=== PATIENT | male | born 1960 | race African-American/Black ===

== ENCOUNTER 2017-01-03 16:07 | Inpatient (IN) | payer MEDICARE, OTHER ==
--- NOTE | ~2017-01-03 | HP ---
History And Physical [id number] [place]. [address] NAME: EDUAR BECKER : 56 STATUS : ADM IN [facility]#: [id number] AGE: 56 ADM/REG DATE : 01/03/17 MR#: [id number] REPORT SERV DATE: 01/04/17 DICTATED BY: KAYLEIGH NATION DATE: 01/03/17 REPORT STATUS : Draft TRANSCRIBED BY: MODL DATE: 01/03/17 DATE OF ADMISSION: 01/03/2017 TIME: 1540 hours. Seen in the ER room 25. HISTORY OF PRESENT ILLNESS: The patient is a 56-year-old male with known history of diabetes and vascular disease. He presents today with evidence of CVA. He was eating lunch with a friend when he suddenly became dysarthric and hold his tray. They brought him in. He was evaluated by Neurology, who clinically assessed him as having a stroke with left upper and lower extremity weakness. CT scan of the head was negative, he was given tPA. The patient has shown some improvement post tPA NIH scale scoring. He is awake and responsive at this point in time. According to his friend he was recently here for work on the vascularity of his right leg. He was seen by Dr. Yobany Chaparro at that time who did a balloon angioplasty type procedure. The patient does have gangrene toe. PAST MEDICAL HISTORY: Past medical history is significant for: 1. Mild mental retardation. 2. Diabetes type 2. 3. Carotid stenosis of right internal carotid artery. 4. Hypertension. 5. Had a previous CEA acute in late November, middle cerebral artery with dysarthria. HOME MEDICATIONS: 1. Aspirin 325 mg. 2. Lipitor 80 mg. 3. Plavix 75 mg. 4. Prinivil 20 mg. 5. Tramadol 50 mg. 6. Glucophage 1000 mg. 7. Norvasc. 8. Glipizide. 9. He also takes insulin. 10.Lisinopril. 11.Insulin detemir 30 units subcu every morning. 12.Insulin NovoLog 25 units before breakfast. PAST SURGICAL HISTORY: Significant for coronary bypass surgery. He says stents in his left leg. The patient had multiple attempts at angioplasty of the right leg. SOCIAL HISTORY: The patient has never worked. He is sent here by a friend. FAMILY HISTORY: Basically unknown. ALLERGIES: TO PENICILLIN. History And Physical [address] [place]. [address] NAME: EDUAR BECKER : 56 STATUS : ADM IN PAT#: [id number] AGE: 56 ADM/REG DATE : 01/03/17 MR#: [id number] REPORT SERV DATE: 01/04/17 DICTATED BY: KAYLEIGH NATION DATE: 01/03/17 REPORT STATUS : Draft TRANSCRIBED BY: MODNettie DATE: 01/03/17 IN NOVEMBER, THE PATIENT HAS SUBACUTE INFARCT EVOLUTION RIGHT FRONTAL REGIONS, RIGHT BASAL GANGLIA. PHYSICAL EXAMINATION: VITAL SIGNS: Blood pressure is 135/63, pulse is 92, temperature 97.4, and saturation normal. GENERAL: The patient is awake and responsive. HEENT: Head is normocephalic. Sclerae and conjunctivae are clear. NECK: Supple. I could not hear any bruits in the neck. CHEST: Clear to auscultation and percussion. Midline scar from previous bypass surgery. CARDIAC: S1, S2 are normal. No murmurs or gallops. ABDOMEN: Soft and nontender. No masses or organomegaly. EXTREMITIES: No clubbing or cyanosis. There are multiple vascular ischemic changes in lower extremities. There is gangrene of the great toe on the right foot. Pulses diminished. NEUROLOGIC: Cranial nerves 2 through 12 appear to be intact. His tongue points left. He can raise all extremities. He has good grasp on both sides, and can speak. He does know where he is. No adenopathy noted. LABORATORY DATA: H and H of 13.3 and 30.9, white count 6000, platelet count 206,000, PTT 32.6, and INR 1.4. Glucose is 67 that was treated by the ER with 1.[address] showed previous ischemic insults noted on 12/04/2016. Those have resolved. No evidence for acute ischemia on this CT, 01/03/2017. A chest x-ray shows mild cardiomegaly, otherwise clear chest x-ray. EKG, not done at this time. IMPRESSION: 1. Cerebrovascular accident, now status post tPA. 2. Diabetes mellitus. 3. Severe peripheral vascular disease with gangrene of the right toe. PLAN: Admit the patient. Continue his antihypertensive medications. Ask Vascular Surgery to see him. Ask Wound Care to see him. JAYME/KAJAL Kayleigh Nation M.D. / [id number] History And Physical [address] [address] NAME: EDUAR BECKER : 56 STATUS : ADM IN [facility]#: [id number] AGE: 56 ADM/REG DATE : 01/03/17 MR#: [id number] REPORT SERV DATE: 01/04/17 DICTATED BY: KAYLEIGH NATION DATE: 01/03/17 REPORT STATUS : Draft TRANSCRIBED BY: KAJAL DATE: 01/03/17 CC: Bennie Escamilla IV, M.D.
--- NOTE | ~2017-01-03 | CN ---
Consultation Report [facility] [address] [place]. [address] NAME: EDUAR BECKER : 56 STATUS : ADM IN PAT#: [id number] AGE: 56 ADM/REG DATE : 01/03/17 MR#: [id number] REPORT SERV DATE: 01/04/17 DICTATED BY: DATE: REPORT STATUS : Draft TRANSCRIBED BY: MODL DATE: 01/03/17 NEUROLOGY CONSULTATION DATE OF CONSULTATION: 01/03/2017 REASON FOR CONSULT: Dysarthria, left-sided weakness, and concern for acute stroke. HISTORY OF PRESENT ILLNESS: This is a 56-year-old male, presented to [facility] on 01/03/2017 secondary to acute onset of the symptom. The patient was talking to a friend, when the patient acutely at roughly 1415 hours, was noted to have dysarthria, slurred speech, as well as confusion. The patient arrived at the emergency room and was noted to have a left-sided hemiparesis. At baseline, the patient was noted to have difficulties with ischemic leg in the lower extremity with the patient has had revascularized procedure, but apparently has not had significant improvement. The patient was also noted to have wounds on the right foot, but otherwise, the patient's friend denies any fever, chills, nausea, vomiting, chest pain, or shortness of breath or any other recent illness. The patient does have recent hospitalization for peripheral vascular disease, but otherwise, no other recent illness and no other changes in medication. The patient's friend reports the patient to be compliant with medication, however, medication bottles was from several months ago, there is a question of the patient's actual compliance. The patient at baseline does not take any anticoagulation. The patient is unable to verbalize if there is any sensory changes, but was noted to have dysarthria. PAST MEDICAL HISTORY: Significant for history of mental retardation as well as a history of diabetes with peripheral vascular disease and history of previous open heart surgery. No history of pacemaker was otherwise noted. MEDICATIONS: The patient's current medications consist of Plavix as well as metformin, Levemir, NovoLog, lisinopril. ALLERGIES: WITH THE PATIENT REPORTS ALLERGY TO PENICILLIN. FAMILY HISTORY: Family history is unclear. The patient's friend thinks that the patient might have a family history of hypertension, but detailed family history is unable to be obtained. REVIEW OF SYSTEMS: Unable to be obtained secondary to the patient's current mental status. According to friend, no clear review of system was noted. PHYSICAL EXAMINATION: VITAL SIGNS: The patient was noted to have vital signs upon ER presentation consisted of T- max 97.4 and heart rate of 92, respirations of 18, blood pressure of 135/63. GENERAL: The patient is well developed, well nourished, in no acute distress. Consultation Report [address] [address] NAME: EDUAR BECKER : 56 STATUS : ADM IN [facility]#: [id number] AGE: 56 ADM/REG DATE : 01/03/17 MR#: [id number] REPORT SERV DATE: 01/04/17 DICTATED BY: DATE: REPORT STATUS : Draft TRANSCRIBED BY: KAJAL DATE: 01/03/17 CARDIOVASCULAR: Regular rate and rhythm. No carotid bruits were otherwise auscultated. PULMONARY: Clear to auscultation bilaterally. NEUROLOGICAL EXAMINATION: Generally, the patient is alert, oriented to he is in the hospital, but not to year or month. The patient is able to follow some sporadic commands at the time of evaluation. Dysarthria was noted at the time of evaluation. Cranial nerves II through XII, pupils equal, round, and reactive to light. Extraocular eye movement was noted to be intact with intact blink to threat response. Facial expression was roughly symmetric. The tongue was deviated to the left with the patient noted to have symmetric palatal movement. Appeared to have normal hearing. Reports a symmetrical sensation bilaterally. The patient was noted to have weakness in the left upper extremity. At the time of evaluation, able to resist some gravity, but drifts down. Otherwise, intact sensation in the right upper and right lower extremities. The patient, in addition, was also noted to have weakness in the left lower extremity. Reports a symmetrical sensation in bilateral upper extremities. Deep tendon reflex was trace in bilateral upper extremity, absent in bilateral patella. No clear ataxia was otherwise seen. Gait evaluation was not performed secondary to weakness. LABORATORY STUDY: Consists of white blood cell count of 6.0, hemoglobin of 13.3, hematocrit is 38.9, and platelet count of 206. At the time of evaluation, CT scan of the brain without contrast demonstrated no acute process. With the CT angiogram, no clear thrombosis was seen by neurologist. Radiology report is currently pending. IMPRESSION: 1. Dysarthria. 2. Left-sided hemiparesis. Time of onset was 1415 hours. NIH Stroke Scale was 5. The tPA was administered at 1523 hours, and concern for subcortical stroke, we will admit the patient to the ICU for further monitoring and continuing evaluation after tPA as per protocol. We will obtain MRI as well as a stroke evaluation. RECOMMENDATION: 1. We will admit to ICU as per post tPA protocol. 2. Fasting lipid panel and hemoglobin A1c. 3. MRI of the brain without contrast. 4. Echocardiogram. 5. PT/OT and Speech Therapy. 6. Aspirin and Plavix 24 hours after tPA. 7. Atorvastatin 80 mg p.o. at bedtime. [facility]/KAJAL Benito Higuera MD Consultation Report [address] [address] NAME: EDUAR BECKER : 56 STATUS : ADM IN [facility]#: [id number] AGE: 56 ADM/REG DATE : 01/03/17 MR#: [id number] REPORT SERV DATE: 01/04/17 DICTATED BY: DATE: REPORT STATUS : Draft TRANSCRIBED BY: MODL DATE: 01/03/17 / [id number] CC: Bennie Escamilla IV, M.D.
--- NOTE | ~2017-01-03 | DS ---
Discharge Summary [facility] [address] [place]. [address] NAME: EDUAR BECKER : 56 STATUS : DIS IN PAT#: [id number] AGE: 56 ADM/REG DATE : 01/03/17 MR#: [id number] REPORT SERV DATE: 01/11/17 DICTATED BY: THI GODINEZ DATE: 01/10/17 REPORT STATUS : Draft TRANSCRIBED BY: MODL DATE: 01/10/17 ADMISSION DATE: 01/03/2017 DISCHARGE DATE: 01/09/2017 CONDITION ON DISCHARGE: Stable. DISPOSITION: Discharged to home with home health nurse and home wound care for amputated right-sided big toe. DIAGNOSES ON DISCHARGE: Include: 1. Acute CVA which resulted in the right basal ganglia infarct with left hemiparesis which did not result in significant residual deficits luckily as the patient received tPA. 2. Multiple old infarcts in the past. 3. Uncontrolled diabetes mellitus. 4. Severe peripheral vascular disease. 5. Diabetic foot ulcer with gangrene of the right big toe status post amputation during this admission. 6. Hypertension, which is stable. 7. Mild mental retardation according to H and P that was noted. 8. Past medical history also includes history of carotid stenosis of the right internal carotid artery. BRIEF HOSPITAL COURSE: The patient is a 56-year-old, black male patient, who was initially admitted to the ICU after he received tPA. He came in with symptoms of left hemiparesis and dysarthria and was given tPA as his CT scan of the brain was normal. After that, he was kept in the unit for 24 to 48 hours to watch for stability and then transferred to the floor. The patient's MRI finally showed an evolving 2.2 x 1.4 cm right basal ganglia infarct that was acute. It is to be noted that the patient has had other strokes in the past too but the most recent one and the acute one during this admission was this right basal ganglia infarct. However, luckily, the patient ended up with very minimal deficits of left-sided weakness. His dysarthria has also almost completely resolved but he also has mild mental retardation and some dysarthria persists. There is no dysphagia, and there is no restriction on food other than soft mechanical diet with aspiration precautions as always in a stroke patient. Also, the patient had developed right big toe diabetic foot ulcer with gangrene, and his right big toe was unsalvageable. He hence had to undergo a right big toe amputation, and he did well after this. On the day of discharge, the site of amputation looks to be healing really well with no evidence of infection. There is very minimal bleeding at the site, slight oozing only with dressing changes. Other than that, the site looks very good. The mercado in this patient is risk factor modification, mainly control of diabetes mellitus and hypertension so after being stabilized and receiving supportive and symptomatic care and antibiotics for the right big toe gangrene and amputation, the patient is being discharged home with home health and home wound care and advised to closely follow up with his PCP Discharge Summary [address] [place]. [address] NAME: EDUAR BECKER : 56 STATUS : DIS IN PAT#: [id number] AGE: 56 ADM/REG DATE : 01/03/17 MR#: [id number] REPORT SERV DATE: 01/11/17 DICTATED BY: THI GODINEZ DATE: 01/10/17 REPORT STATUS : Draft TRANSCRIBED BY: KAJAL DATE: 01/10/17 within the next one to two weeks. The patient is being discharged home on the following medications: Levaquin 500 mg p.o. daily for the next one week, aspirin 325 mg p.o. daily, Glargine insulin or Lantus insulin 30 units subcu once daily, NovoLog FlexPen 25 units subcutaneously before breakfast and supper, Lipitor 40 mg p.o. daily, Robaxin 750 mg p.o. t.i.d., Glucophage 1000 mg p.o. b.i.d., Prinivil 20 mg once a day, Plavix 75 mg once a day, amlodipine 10 mg once a day, and tramadol 50 mg p.o. daily p.r.n. for pain. The most recent lab results I have on this patient include the following: On 01/08/2017, his CBC shows a WBC count of 6, hemoglobin 13.7, hematocrit 41.4, and platelet count of 242 all completely normal. Electrolyte profile shows completely normal electrolytes including BUN 16, creatinine 1.07 which is normal. Blood glucose levels are fairly well controlled while in the hospital only with diet control and with good amount of insulin. His hemoglobin A1c, however, came back elevated at 8.3 reflecting uncontrolled diabetes while at home. As mentioned above as his CT scan of the brain was normal upon admission, an MRI was done after he received tPA. This showed an evolving stroke as mentioned above in the right basal ganglia, again, the effects of which were probably minimized because of the tPA. Hence, the patient is being discharged home in stable condition with advice for close followup, and I have spent about 40 minutes in coordinating discharge care of this patient including face-to face encounter and summarizing this discharge. RRA/MODL Thi Godinez M.D. / [id number] CC: Bennie Myers M.D.
--- NOTE | ~2017-01-03 | OP ---
Record Of Operation [facility] [address] [place]. [address] NAME: EDUAR BECKER : 56 STATUS : ADM IN [facility]#: [id number] AGE: 56 ADM/REG DATE : 01/03/17 MR#: [id number] REPORT SERV DATE: 01/06/17 DICTATED BY: YOBANY CHAPARRO JR. DATE: 01/06/17 REPORT STATUS : Draft TRANSCRIBED BY: KAJAL DATE: 01/06/17 DATE OF PROCEDURE: 01/06/2017 PREOPERATIVE DIAGNOSES: Recent cerebrovascular accident, diabetes, right great toe ulceration and operation of right great toe disarticulation. POSTOPERATIVE DIAGNOSES: Recent cerebrovascular accident, diabetes, right great toe ulceration and operation of right great toe disarticulation. SURGEON: Yobany Chaparro M.D. HISTORY: This is a 56-year-old, white male with diabetes, admitted to the hospital on 01/03/2017 with a CVA. He has recovered well. While here, he was noted to have ulceration of his right great toe with claw-toe deformity and palpable pulses in his right foot. PROCEDURE: The patient was placed on the operating room table. He underwent a general anesthetic. Right foot was prepped and draped in a sterile manner as possible. Racquet- shaped incisions were made around the base of the right great toe. The MP joint was then incised with a 15 blade. The toe was then completely removed. The toe was injected with Marcaine. One focal bleeder was cauterized. The wound was closed with 3-0 nylon. The patient tolerated the procedure well and came back to recovery room in fair condition. There were no intraoperative complications. ESTIMATED BLOOD LOSS: Negligible. DF/KAJAL Yobany Chaparro Jr., M.D. / [id number] CC: MD Ramiro Davila M.D.
[2017-01-03 15:25] LABS: BASOPHILS 0.2 %; BASOPHILS ABSOLUTE 0.01 10/3/uL (0.0-0.16); EOSINOPHILS 2.5 %; EOSINOPHILS ABSOLUTE 0.15 10/3/uL (0.0-0.53); ER CBC TAT 0 Hrs 07 Mins; HEMATOCRIT 38.9 % (40.0-51.0); HEMOGLOBIN 13.3 g/dL (13.6-17.8); IMMATURE GRANULOCYTES 0.2 %; IMMATURE GRANULOCYTES ABSOLUTE 0.01 10/3/uL (0.0-0.11); LYMPHOCYTES 37.3 %; LYMPHOCYTES ABSOLUTE 2.25 10/3/uL (0.67-4.30); MEAN CORPUS HGB CONC 34.2 g/dL (32.0-36.0); MEAN CORPUSCULAR HEMOGLOB 28.1 pg (26.0-34.0); MEAN CORPUSCULAR VOLUME 82.2 fL (80-100); MEAN PLATELET VOLUME 9.8 fL (9.2-13.0); MONOCYTES 10.1 %; MONOCYTES ABSOLUTE 0.61 10/3/uL (0.21-1.20); NEUTROPHILS 49.7 %; RBC DISTRIBUTION WIDTH 13.6 % (12.0-16.0); RED CELL COUNT 4.73 10/6/uL (4.7-6.1)
[2017-01-03 15:27] LABS: MANUAL DIFF NO %; PLATELET COUNT 206 10/3/uL (150-400)
[2017-01-03 15:34] LABS: INTERNATIONAL NORMAL RATI 1.4 UNITS (-); PARTIAL THROMBO TIME 32.6 SEC (22.5-37.2); PROTIME (NOT ORD) 16.8 SEC (12.0-14.5)
[2017-01-03 15:49] LABS: ALKALINE PHOSPHATASE 93 U/L (45-117); CALCIUM, SERUM 8.8 MG/DL (8.5-10.4); CHLORIDE, SERUM 106 MMOL/L (96-112); CO2 (CARBON DIOXIDE) 28 MMOL/L (24-34); CREATININE 1.31 MG/DL (0.70-1.30); GFR AFRICAN AMERICAN 69 ML/MIN (>=60); GFR NON AFRICAN AMERICAN 60 ML/MIN (>=60); SGOT(AST) 12 U/L (5-40); SGPT(ALT) 21 U/L (5-65); SODIUM, SERUM 143 MMOL/L (135-148); TOTAL BILIRUBIN 0.7 MG/DL (0-1.2); TOTAL PROTEIN 7.4 G/DL (6.0-8.5); TROPONIN I <0.02 NG/ML (<0.05)
[2017-01-03 15:50] LABS: A/G RATIO 0.8 (0.7-1.9); ALBUMIN 3.3 G/DL (3.5-5.0); BUN (BLOOD UREA NITROGEN) 26 MG/DL (6-23); GLOBULIN 4.1 G/DL (2.5-4.1); GLUCOSE, SERUM 73 MG/DL (60-99)
[~2017-01-03 16:07] MED LIST: *UNABLE2; ASA5GR PO; ASAB PO; CILOXAN OPH; CLEOCIN300 MG PO; COREG6 PO; GLIPIZIDE PO; GLUCOPHAGE1000 MG PO; GLUCPH PO; LEVEMFLXPN SC; LEVEMIR SC; LIPITOR40 PO; LIPITOR80 MG PO; LOP25 PO; METHOC750B PO; NORCO PO; NORV10 PO; NORV25 PO; NORV5 PO; NOVOLOG SC; NOVOLOG SQ; NOVOPEN SC; NOVOPENMIX SC; PLAVIX PO; PREDFORTE OPH; PRIN20 PO; ULTRAM50 PO; ZESTRIL20 MG PO; ZYVOXPO PO; [UNRECOGNIZED DRUG - OTHER] OPH
[2017-01-03 20:00] LABS: BASOPHILS 0.1 %; BASOPHILS ABSOLUTE 0.01 10/3/uL (0.0-0.16); EOSINOPHILS 1.9 %; EOSINOPHILS ABSOLUTE 0.14 10/3/uL (0.0-0.53); HEMOGLOBIN 14.8 g/dL (13.6-17.8); IMMATURE GRANULOCYTES 0.3 %; IMMATURE GRANULOCYTES ABSOLUTE 0.02 10/3/uL (0.0-0.11); LYMPHOCYTES 27.7 %; MEAN CORPUS HGB CONC 34.3 g/dL (32.0-36.0); MEAN CORPUSCULAR HEMOGLOB 27.9 pg (26.0-34.0); MEAN CORPUSCULAR VOLUME 81.4 fL (80-100); MEAN PLATELET VOLUME 9.8 fL (9.2-13.0); MONOCYTES 5.5 %; NEUTROPHILS 64.5 %; NEUTROPHILS ABSOLUTE 4.66 10/3/uL (2.02-8.40); PLATELET COUNT 213 10/3/uL (150-400); RBC DISTRIBUTION WIDTH 13.5 % (12.0-16.0); RED CELL COUNT 5.31 10/6/uL (4.7-6.1); WHITE BLOOD CELLS 7.2 10/3/uL (4.5-10.5)
[2017-01-03 20:02] LABS: HEMATOCRIT 43.2 % (40.0-51.0); MANUAL DIFF NO %
[2017-01-03 20:16] LABS: CPK 98 U/L (0-200); TRIGLYCERIDE 82 MG/DL (< 150); TROPONIN I <0.02 NG/ML (<0.05)
[2017-01-03 20:17] LABS: CHOL/HDL RATIO(NOT ORDER) 3.2 (0-5); CHOLESTEROL 173 MG/DL (< 200); CK-MB 1.7 NG/ML; HDL CHOLESTEROL 54 MG/DL (> 39); LDL CHOLESTEROL 103 MG/DL (< 130); NON-HDL CHOLESTEROL 119 MG/DL (< 160)
[2017-01-04 04:06] LABS: BASOPHILS 0.3 %; BASOPHILS ABSOLUTE 0.02 10/3/uL (0.0-0.16); HEMATOCRIT 40.9 % (40.0-51.0); HEMOGLOBIN 13.8 g/dL (13.6-17.8); IMMATURE GRANULOCYTES 0.3 %; IMMATURE GRANULOCYTES ABSOLUTE 0.02 10/3/uL (0.0-0.11); LYMPHOCYTES 33.2 %; LYMPHOCYTES ABSOLUTE 2.22 10/3/uL (0.67-4.30); MEAN CORPUS HGB CONC 33.7 g/dL (32.0-36.0); MEAN CORPUSCULAR HEMOGLOB 27.6 pg (26.0-34.0); MEAN CORPUSCULAR VOLUME 81.8 fL (80-100); MEAN PLATELET VOLUME 9.9 fL (9.2-13.0); MONOCYTES 7.5 %; NEUTROPHILS 55.7 %; NEUTROPHILS ABSOLUTE 3.73 10/3/uL (2.02-8.40); PLATELET COUNT 214 10/3/uL (150-400); RBC DISTRIBUTION WIDTH 13.7 % (12.0-16.0); WHITE BLOOD CELLS 6.7 10/3/uL (4.5-10.5)
[2017-01-04 04:08] LABS: MANUAL DIFF NO %
[2017-01-04 04:34] LABS: CHLORIDE, SERUM 102 MMOL/L (96-112); CO2 (CARBON DIOXIDE) 26 MMOL/L (24-34); CREATININE 0.89 MG/DL (0.70-1.30); GFR AFRICAN AMERICAN 109 ML/MIN (>=60); GFR NON AFRICAN AMERICAN 94 ML/MIN (>=60); POTASSIUM, SERUM 3.2 MMOL/L (3.5-5.3); SODIUM, SERUM 138 MMOL/L (135-148); TROPONIN I 0.02 NG/ML (<0.05)
[2017-01-04 04:35] LABS: BUN (BLOOD UREA NITROGEN) 18 MG/DL (6-23); CK-MB 1.3 NG/ML; CPK 75 U/L (0-200); GLUCOSE, SERUM 184 MG/DL (60-99)
[2017-01-04 05:19] LABS: WBC (NOT ORDERED) (RFLEX) 0 (0-5)
[2017-01-04 06:00] LABS: ASCORBIC ACID (UR NOT ORDER) NEG (NEG); BILIRUBIN, URINE NEGATIVE (NEG); KETONE, URINE NEGATIVE (NEG); LEUKOCYTE ESTERASE(NOT OR NEG (NEG)
[2017-01-04 12:16] LABS: CPK 67 U/L (0-200); TROPONIN I <0.02 NG/ML (<0.05)
[2017-01-04 12:17] LABS: CK-MB 1.5 NG/ML
[2017-01-05 04:20] LABS: BASOPHILS 0.2 %; BASOPHILS ABSOLUTE 0.01 10/3/uL (0.0-0.16); EOSINOPHILS 3.4 %; HEMATOCRIT 43.8 % (40.0-51.0); HEMOGLOBIN 14.7 g/dL (13.6-17.8); IMMATURE GRANULOCYTES 0.2 %; IMMATURE GRANULOCYTES ABSOLUTE 0.01 10/3/uL (0.0-0.11); LYMPHOCYTES 31.9 %; LYMPHOCYTES ABSOLUTE 1.86 10/3/uL (0.67-4.30); MEAN CORPUS HGB CONC 33.6 g/dL (32.0-36.0); MEAN CORPUSCULAR HEMOGLOB 28.1 pg (26.0-34.0); MEAN CORPUSCULAR VOLUME 83.7 fL (80-100); MEAN PLATELET VOLUME 9.6 fL (9.2-13.0); MONOCYTES 11.7 %; MONOCYTES ABSOLUTE 0.68 10/3/uL (0.21-1.20); NEUTROPHILS 52.6 %; NEUTROPHILS ABSOLUTE 3.07 10/3/uL (2.02-8.40); PLATELET COUNT 227 10/3/uL (150-400); RBC DISTRIBUTION WIDTH 13.6 % (12.0-16.0); RED CELL COUNT 5.23 10/6/uL (4.7-6.1); WHITE BLOOD CELLS 5.8 10/3/uL (4.5-10.5)
[2017-01-05 04:22] LABS: MANUAL DIFF NO %
[2017-01-05 04:43] LABS: BUN (BLOOD UREA NITROGEN) 18 MG/DL (6-23); CALCIUM, SERUM 9.3 MG/DL (8.5-10.4); CHLORIDE, SERUM 105 MMOL/L (96-112); CO2 (CARBON DIOXIDE) 26 MMOL/L (24-34); GFR AFRICAN AMERICAN 85 ML/MIN (>=60); GFR NON AFRICAN AMERICAN 74 ML/MIN (>=60); GLUCOSE, SERUM 117 MG/DL (60-99); PHOSPHORUS, SERUM 2.8 MG/DL (2.5-4.5); POTASSIUM, SERUM 3.8 MMOL/L (3.5-5.3); SODIUM, SERUM 139 MMOL/L (135-148)
[2017-01-06 08:56] LABS: HEMATOCRIT 43.5 % (40.0-51.0); HEMOGLOBIN 14.6 g/dL (13.6-17.8)
[2017-01-07 07:21] LABS: BASOPHILS 0.2 %; BASOPHILS ABSOLUTE 0.01 10/3/uL (0.0-0.16); EOSINOPHILS 3.1 %; HEMATOCRIT 40.8 % (40.0-51.0); HEMOGLOBIN 13.6 g/dL (13.6-17.8); IMMATURE GRANULOCYTES 0.2 %; IMMATURE GRANULOCYTES ABSOLUTE 0.01 10/3/uL (0.0-0.11); LYMPHOCYTES 27.1 %; LYMPHOCYTES ABSOLUTE 1.72 10/3/uL (0.67-4.30); MEAN CORPUS HGB CONC 33.3 g/dL (32.0-36.0); MEAN CORPUSCULAR HEMOGLOB 27.5 pg (26.0-34.0); MEAN CORPUSCULAR VOLUME 82.4 fL (80-100); MEAN PLATELET VOLUME 9.7 fL (9.2-13.0); MONOCYTES 9.4 %; NEUTROPHILS ABSOLUTE 3.81 10/3/uL (2.02-8.40); PLATELET COUNT 229 10/3/uL (150-400); RBC DISTRIBUTION WIDTH 13.8 % (12.0-16.0); RED CELL COUNT 4.95 10/6/uL (4.7-6.1); WHITE BLOOD CELLS 6.4 10/3/uL (4.5-10.5)
[2017-01-07 07:28] LABS: MANUAL DIFF NO %
[2017-01-07 08:05] LABS: A/G RATIO 0.8 (0.7-1.9); ALBUMIN 3.2 G/DL (3.5-5.0); ALKALINE PHOSPHATASE 81 U/L (45-117); BUN (BLOOD UREA NITROGEN) 17 MG/DL (6-23); CALCIUM, SERUM 8.8 MG/DL (8.5-10.4); CHLORIDE, SERUM 105 MMOL/L (96-112); CO2 (CARBON DIOXIDE) 27 MMOL/L (24-34); CREATININE 0.98 MG/DL (0.70-1.30); GFR AFRICAN AMERICAN 98 ML/MIN (>=60); GFR NON AFRICAN AMERICAN 85 ML/MIN (>=60); GLOBULIN 3.9 G/DL (2.5-4.1); GLUCOSE, SERUM 103 MG/DL (60-99); PHOSPHORUS, SERUM 3.3 MG/DL (2.5-4.5); POTASSIUM, SERUM 4.3 MMOL/L (3.5-5.3); SGOT(AST) 12 U/L (5-40); SGPT(ALT) 19 U/L (5-65); SODIUM, SERUM 139 MMOL/L (135-148); TOTAL BILIRUBIN 0.9 MG/DL (0-1.2); TOTAL PROTEIN 7.1 G/DL (6.0-8.5)
[2017-01-08 06:15] LABS: BASOPHILS 0.3 %; BASOPHILS ABSOLUTE 0.02 10/3/uL (0.0-0.16); EOSINOPHILS 3.4 %; HEMATOCRIT 41.4 % (40.0-51.0); HEMOGLOBIN 13.7 g/dL (13.6-17.8); IMMATURE GRANULOCYTES 0.2 %; IMMATURE GRANULOCYTES ABSOLUTE 0.01 10/3/uL (0.0-0.11); LYMPHOCYTES 36.6 %; LYMPHOCYTES ABSOLUTE 2.18 10/3/uL (0.67-4.30); MEAN CORPUS HGB CONC 33.1 g/dL (32.0-36.0); MEAN CORPUSCULAR HEMOGLOB 27.6 pg (26.0-34.0); MEAN CORPUSCULAR VOLUME 83.5 fL (80-100); MEAN PLATELET VOLUME 9.6 fL (9.2-13.0); MONOCYTES 10.9 %; MONOCYTES ABSOLUTE 0.65 10/3/uL (0.21-1.20); NEUTROPHILS 48.6 %; NEUTROPHILS ABSOLUTE 2.89 10/3/uL (2.02-8.40); PLATELET COUNT 242 10/3/uL (150-400); RBC DISTRIBUTION WIDTH 13.6 % (12.0-16.0); RED CELL COUNT 4.96 10/6/uL (4.7-6.1)
[2017-01-08 06:16] LABS: MANUAL DIFF NO %
[2017-01-08 06:19] LABS: BUN (BLOOD UREA NITROGEN) 16 MG/DL (6-23); CALCIUM, SERUM 8.9 MG/DL (8.5-10.4); CHLORIDE, SERUM 101 MMOL/L (96-112); CO2 (CARBON DIOXIDE) 29 MMOL/L (24-34); CREATININE 1.07 MG/DL (0.70-1.30); GFR AFRICAN AMERICAN 88 ML/MIN (>=60); GFR NON AFRICAN AMERICAN 76 ML/MIN (>=60); GLUCOSE, SERUM 123 MG/DL (60-99); POTASSIUM, SERUM 4.2 MMOL/L (3.5-5.3); SODIUM, SERUM 137 MMOL/L (135-148)
[2017-01-09] MEDS ORDERED: LEVEMIR SC (11:23)
[2017-01-09] MEDS ORDERED: ASA5GR PO (11:23)
[2017-01-09] MEDS ORDERED: LEVAQUIN5T PO (11:25)
[2017-01-14 14:03] LABS: CREATININE 1.3 MG/DL (0.70-1.30)
[2017-06-24] MEDS ORDERED: PLAVIX PO (15:35)
[2017-06-24] MEDS ORDERED: PRIN20 PO (15:36)
[2017-06-24] MEDS ORDERED: NEUR300 PO (15:36)
[2017-06-24] MEDS ORDERED: GLUCOPHAGE1000 MG PO (15:36)
[2017-06-24] MEDS ORDERED: LEVEMIR SC (15:36)
[2017-06-24] MEDS ORDERED: LOP50 PO (15:37)
[2017-06-30] MEDS ORDERED: DSS PO (14:23)
[2017-06-30] MEDS ORDERED: NORV10 PO (14:23)
[2017-06-30] MEDS ORDERED: ASAB PO (14:23)
== END 2017-01-09 19:22 | disposition home health service (06) | DRG 41 ==
LOC: ER 16:07 → CCU 17:45 → 1SO 01-05 17:30
PROVIDERS: Hospitalist; Internal Medicine Critical Care Medicine; Psychiatry & Neurology Neurology; Surgery
PROC: 0Y6P0Z0 Detachment at Right 1st Toe, Complete, Open Approach (ICD-10-PCS; principal; 2017-01-06 12:45)
DX: I63.9 Cerebral infarction, unspecified (principal); G81.94 Hemiplegia, unspecified affecting left nondominant side; E11.52 Type 2 diabetes mellitus with diabetic peripheral angiopathy with gangrene; E11.621 Type 2 diabetes mellitus with foot ulcer; I25.10 Atherosclerotic heart disease of native coronary artery without angina pectoris; E11.649 Type 2 diabetes mellitus with hypoglycemia without coma; R47.1 Dysarthria and anarthria; R29.705 NIHSS score 5; L97.519 Non-pressure chronic ulcer of other part of right foot with unspecified severity; I10 Essential (primary) hypertension; F70 Mild intellectual disabilities; I65.21 Occlusion and stenosis of right carotid artery; Z95.1 Presence of aortocoronary bypass graft; Z79.4 Long term (current) use of insulin; Z79.84 Long term (current) use of oral hypoglycemic drugs; Z79.82 Long term (current) use of aspirin; Z79.02 Long term (current) use of antithrombotics/antiplatelets; Z86.73 Personal history of transient ischemic attack (TIA), and cerebral infarction without residual deficits; Z88.0 Allergy status to penicillin
CPT/HCPCS: 36415; 70450; 70496; 70498; 70551; 71010; 80048; 80053; 80061; 81001; 82550; 82553; 82962; 83036; 83735; 84100; 84484; 85014; 85018; 85025; 85610; 85730; 86850; 86900; 86901; 87641; 88305; 88311; 92523-GN; 92610-GN; 93005; 93308; 93880; 96374; 97162-GP; 97165-GO; 99285; A9270-GY; G8978-CK-GP; G8979-CK-GP; G8980-CK-GP; G8987-CJ-GO; G8988-CJ-GO; G8989-CJ-GO; G8996-CJ-GN; G8997-CJ-GN; G8998-CJ-GN; G9162-CJ-GN; G9163-CJ-GN; G9164-CJ-GN; J0690; J2250; J2405; J2997; P9045; Q9967

== ENCOUNTER 2017-03-10 18:19 | Observation (INO) | payer MEDICARE, OTHER ==
--- NOTE | ~2017-03-10 | CN ---
Consultation Report [facility] [address] [place]. [address] NAME: EDUAR BECKER : 56 STATUS : ADM IN [facility]#: [id number] AGE: 56 ADM/REG DATE : 03/11/17 MR#: [id number] REPORT SERV DATE: 03/11/17 DICTATED BY: FLORENCIA SYED DATE: 03/11/17 REPORT STATUS : Draft TRANSCRIBED BY: MODL DATE: 03/11/17 INFECTIOUS DISEASE CONSULTATION DATE OF CONSULTATION: 03/11/2017 REASON FOR CONSULTATION: Nail injury to left foot. HISTORY OF PRESENT ILLNESS: This is a 56-year-old man with past medical history notable for diabetes, hypertension, and coronary artery disease along with peripheral arterial disease. On 03/09/2017, he stepped on a small nail that was in some wood while he was wearing a tennis shoes. He felt the injury right after it happened and washed the foot, but developed progressive pain, swelling, and some redness and presented to the emergency department at [facility] on the evening of 03/10/2017. He was found to have a normal white blood cell count and no fever, but had some erythema and tenderness in the area of the injury. An x-ray was done and it was negative. He was started on vancomycin. He does feel better today. The patient has neuropathy in his feet, but he was able to feel this injury occur. PAST MEDICAL HISTORY: In addition to the above is notable for stroke with mild left hemiparesis. He has also had bypass surgery. He had a nail injury to his right heel in 2016 with an abscess that grew MRSA. ALLERGIES: PENICILLIN CAUSES SWELLING. OUTPATIENT MEDICATIONS: Include Norvasc, aspirin, Lipitor, Plavix, insulin, Prinivil, and metformin. SOCIAL HISTORY: Nonsmoker and nondrinker. FAMILY HISTORY: Unknown. REVIEW OF SYSTEMS: Otherwise, negative. PHYSICAL EXAMINATION: VITAL SIGNS: This an 82 kg man. He is afebrile. Blood pressure 167/77, pulse 90, and respiratory rate 14. GENERAL: He is in no acute distress. HEAD AND NECK: Shows clear oral cavity. LUNGS: Clear to auscultation anteriorly. CARDIAC: Regular rate and rhythm without murmur, gallop, or rub. ABDOMEN: Soft and nontender. Decreased bowel sounds. EXTREMITIES: The plantar aspect of the left foot shows the wound where the nail penetrated the left lateral foot near the distal fourth and fifth metatarsal area. There is minimal surrounding induration and tenderness to palpation. No real erythema now and no drainage. Consultation Report [address] [place]. [address] NAME: EDUAR BECKER : 56 STATUS : ADM IN [facility]#: [id number] AGE: 56 ADM/REG DATE : 03/11/17 MR#: [id number] REPORT SERV DATE: 03/11/17 DICTATED BY: FLORENCIA SYED DATE: 03/11/17 REPORT STATUS : Draft TRANSCRIBED BY: KAJAL DATE: 03/11/17 LABORATORY STUDIES: White blood cell count today 6.3, hemoglobin 15.0, and platelets 196. Procalcitonin less than 0.05. Creatinine 1.18. Liver function tests normal. Sedimentation rate of 12. Blood cultures negative to date. IMPRESSION: Penetrating nail injury to the left foot through a tissue in a diabetic. PLAN: 1. We will add Levaquin to vancomycin to cover gram negatives including Pseudomonas that could have been part of the bacterial abel in the tissue that could have been introduced into the foot with the injury. 2. We will reassess tomorrow, but anticipate discharge soon on oral antibiotics. KATLIN/KAJAL Florencia Syed M.D. / [id number] CC: Bennie Pabon M.D.
--- NOTE | ~2017-03-10 | DS ---
Discharge Summary [facility] [address] [place]. [address] NAME: EDUAR BECKER : 56 STATUS : ADM Jacoby PAT#: [id number] AGE: 56 ADM/REG DATE : 03/11/17 MR#: [id number] REPORT SERV DATE: 03/14/17 DICTATED BY: SRIDHAR MATUTE DATE: 03/14/17 REPORT STATUS : Draft TRANSCRIBED BY: MODL DATE: 03/14/17 ADMISSION DATE: 03/11/2017 DISCHARGE DATE: ADDENDUM: This is an addendum to previous discharge summary on both 03/12/2017 and 03/13/2017. The patient was to be discharged on 03/13/2017 after his stress test. Unfortunately, the patient underwent nuclear medicine stress test with inducible ischemia. He was seen by Dr. Ambrocio, Cardiology. The patient was asymptomatic, had no further VT, and had no chest pain. It was decided that he would proceed with outpatient evaluation as directed by Dr. Ambrocio, and the patient was in agreement to this. I also discussed this with the patient's guardian, who assists him. Only other issues during his hospital stay was hypertension. He was asymptomatic without chest pain, headache or shortness of breath, but his Lopressor was increased to 50 b.i.d. from 25, and he was placed on a nitroglycerin patch with good improvement in his pressure. At discharge, he has an appointment on 03/19/[address] Ambrocio. Medication changes will be Norvasc discontinued. Lopressor will increase from 25 to 50 and nitroglycerin patch will be added. He had otherwise finish out his antibiotics and his other medications as per his previous discharge summary. TLF/KAJAL Sridhar Matute M.D. / [id number] CC: Bennie Pabon M.D.
--- NOTE | ~2017-03-10 | DS ---
Discharge Summary [id number] [facility] . [address] NAME: EDUAR BECKER : 56 STATUS : ADM Jacoby PAT#: [id number] AGE: 56 ADM/REG DATE : 03/11/17 MR#: [id number] REPORT SERV DATE: 03/13/17 DICTATED BY: SRIDHAR MATUTE DATE: 03/13/17 REPORT STATUS : Draft TRANSCRIBED BY: MODL DATE: 03/13/17 ADMISSION DATE: 03/11/2017 DISCHARGE DATE: ADDENDUM: The patient was to be discharged home; however, he had an asymptomatic 7-beat run of VT. His previous cardiac history and followup was unknown. Troponin and electrolytes were checked and negative. It was elected to proceed with a nuclear medicine stress test given the patient's previous history of CAD. Pending a negative stress test, he will be discharged later today with recommended followup with his credit assistant, Dr. Ambrocio. New prescriptions will be metoprolol 25 b.i.d., prescription written with one refill, and Cipro 500 b.i.d. x7 days, Bactrim DS b.i.d. x7 days. He will otherwise, with the exception of discontinuing his Norvasc, continue his other home medications as dictated in previous note. EDIN/KAJAL Sridhar Matute M.D. / [id number] CC: Bennie Pabon M.D.
--- NOTE | ~2017-03-10 | DS ---
Discharge Summary [facility] [address] [facility] [place]. [address] NAME: EDUAR BECKER : 56 STATUS : ADM IN [facility]#: [id number] AGE: 56 ADM/REG DATE : 03/11/17 MR#: [id number] REPORT SERV DATE: 03/12/17 DICTATED BY: SRIDHAR MATUTE DATE: 03/12/17 REPORT STATUS : Draft TRANSCRIBED BY: MODL DATE: 03/12/17 ADMISSION DATE: 03/11/2017 DISCHARGE DATE: 03/12/2017 FINAL HOSPITAL DIAGNOSES: 1. Cellulitis, status post nail puncture. 2. Diabetes. 3. Hypertension. 4. Prior cerebrovascular accident. 5. Coronary artery disease. CONSULTATIONS: Infectious Disease. PROCEDURES: X-ray imaging of the foot done on 03/10 showing no obvious radiographic abnormality. No foreign body. No soft tissue gas. CURRENT PHYSICAL FINDINGS AND HPI: Please see dictated H and P by Dr. Szymanski. In brief, the patient is a 56-year-old male with above medical history with complaint of nail puncture to his left lower extremity prior to admission. Hospital course vital signs, presenting temp was 97.9. The patient had no significant fever during his hospital stay. Heart rate was 70s to 80s. Blood pressures were markedly elevated when he initially presented with 224/108. Subsequently, his blood pressures decreased to the 150s to 160s/70s. LABORATORY DATA: Procalcitonin was less than 0.05. BMP was unremarkable. Blood sugars were well controlled. TSH was 2.870. BNP was 47.1, lactate was 1.0. Presenting white count was 6.3, H and H was 15 and 44.4, platelets of 196. Blood cultures are negative to date. HOSPITAL COURSE: The patient was admitted. Infectious Disease was consulted. Routine labs were ordered as noted above. He was started on sliding scale insulin. He was started on vancomycin, and a tetanus booster was requested and ordered, was given on 03/11. The patient was seen by Infectious Disease and Levaquin p.o. was added to his antibiotics. His foot seemed to be improving. He was re-evaluated on the second hospital day. There was minimal swelling to the dorsum of his foot. The puncture wound looked dry, well closed without drainage. Pending ID recommendations, he will be discharged later today. DISPOSITION: Discharge home. ANTIBIOTICS: Per Infectious Disease. MEDICATIONS: Norvasc 10 one per day, aspirin 325, Lipitor 40, Plavix 75, Levemir 30, Prinivil 20, Glucophage 1000 b.i.d. He will be advised to follow up with his PCP p.rnay. No changes were made on his antihypertensives although his numbers were borderline at best. This can be followed outpatient. Discharge Summary [address] [address] NAME: EDUAR BECKER : 56 STATUS : ADM IN [facility]#: [id number] AGE: 56 ADM/REG DATE : 03/11/17 MR#: [id number] REPORT SERV DATE: 03/12/17 DICTATED BY: SRIDHAR MATUTE DATE: 03/12/17 REPORT STATUS : Draft TRANSCRIBED BY: KAJAL DATE: 03/12/17 NOEMYF/KAJAL Sridhar Matute M.D. / [id number] CC: Bennie Pabon M.D.
--- NOTE | ~2017-03-10 | HP ---
History And Physical [address] [place]. [address] NAME: EDUAR BECKER : 56 STATUS : ADM IN [facility]#: [id number] AGE: 56 ADM/REG DATE : 03/11/17 MR#: [id number] REPORT SERV DATE: 03/11/17 DICTATED BY: SAGE HORNE DATE: 03/11/17 REPORT STATUS : Draft TRANSCRIBED BY: MODL DATE: 03/11/17 DATE OF ADMISSION: 03/11/2017 CHIEF COMPLAINT: A 56-year-old male, presenting with a nail puncture and cellulitis of his left foot. HISTORY OF PRESENT ILLNESS: The patient's history was obtained through careful interview with the patient, coupled with review of [facility] medical records. This afternoon, the patient was walking on a job site and had a nail puncture into his foot, going deep into his foot. He developed significant pain, redness, swelling, but no purulent drainage. He describes no fevers or chills. No shortness of breath. He claims diabetes is under good control. He describes left foot pain, aching quality, around the area of his injury, 3/10 in severity. REVIEW OF SYSTEMS: Otherwise, a 14-point review of systems was obtained was negative. PAST MEDICAL HISTORY: 1. Diabetes hemoglobin A1c of 8.3 in December 2016. 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 3. Stroke with left hemiparesis, mild. 4. CABG. 5. Hypertension. 6. Peripheral arterial disease with carotid stenosis and balloon angioplasty of lower extremity arterial blockage, seen by Dr. Chaparro. 7. MRSA. PAST SURGICAL HISTORY: 1. CABG about 10 years ago. 2. Left foot toe amputation. ALLERGIES: TO PENICILLIN. SOCIAL HISTORY: No tobacco abuse. No alcohol abuse. Spent part of his developing years at [employer]. He lives with a friend. He does construction. He has no children. FAMILY HISTORY: Unknown. He does have brothers and sisters, who live in the area, but he believes they are all healthy without major medical problems. CURRENT MEDICATIONS: Include Norvasc 10 mg p.o. daily, aspirin 325 mg p.o. daily, Lipitor 40 mg p.o. daily, Plavix 75 mg p.o. daily, Levemir 30 units subcutaneous daily, lisinopril 20 History And Physical [address] [place]. [address] NAME: EDUAR BECKER : 56 STATUS : ADM IN [facility]#: [id number] AGE: 56 ADM/REG DATE : 03/11/17 MR#: [id number] REPORT SERV DATE: 03/11/17 DICTATED BY: SAGE HORNE DATE: 03/11/17 REPORT STATUS : Draft TRANSCRIBED BY: MODL DATE: 03/11/17 mg p.o. daily, and metformin 1000 mg p.o. b.i.d. PHYSICAL EXAMINATION: VITAL SIGNS: Temperature 97.7, pulse 101, blood pressure 224/98, respiratory rate 16, and O2 saturation 99% on room air. GENERAL: A pleasant and cooperative male. He describes mild distress from his left foot pain. HEENT: Pupils are equal, round, and reactive to light. No conjunctival pallor. No scleral icterus. Nares are patent. Oropharynx is clear of obstruction. Moist mucous membranes. NECK: Trachea midline. No thyromegaly. LYMPH: No cervical lymphadenopathy. No supraclavicular lymphadenopathy. No inguinal lymphadenopathy. RESPIRATORY: Clear to auscultation at bases. No wheezes, rales, or rhonchi. Normal respiratory effort. CARDIOVASCULAR: Tachycardic. Regular rhythm. No murmurs, rubs, or gallops. No current extremity edema is appreciated. ABDOMEN: Soft, nontender, and nondistended. Normal bowel sounds auscultated throughout. No hepatosplenomegaly. DERMATOLOGICAL: The patient's left foot around the obvious puncture site shows erythema, heat, swelling, and tenderness. No purulent drainage. Otherwise, warm and dry extremities. No pallor. No cyanosis. PSYCHIATRIC: Normal affect. Good mood. Alert and oriented x3. LABORATORY DATA: White blood cell count 5.9, hemoglobin 15, hematocrit 45, and platelets 199. Sodium 142, potassium 4.0, chloride 106, bicarb 32, BUN 26, creatinine 1.1, and glucose 165. INR 1.4 and lactic acid 0.9. ASSESSMENT AND PLAN: 1. Nail puncture cellulitis of the left foot with history of severe diabetic foot infections and methicillin-resistant Staphylococcus aureus in the past. We will start treatment with IV vancomycin. Obtain Infectious Disease consult for antibiotic guidance. We will give a tetanus booster. 2. Diabetes. Hemoglobin A1c of 8.[address] on sliding scale insulin. 3. Organic brain syndrome. 4. Peripheral arterial disease. 5. Coronary artery disease, status post coronary artery bypass graft. KPL/KAJAL Sage Horne M.D. / [id number] CC: History And Physical [address] [address] NAME: EDUAR BECKER : 56 STATUS : ADM IN [facility]#: [id number] AGE: 56 ADM/REG DATE : 03/11/17 MR#: [id number] REPORT SERV DATE: 03/11/17 DICTATED BY: SAGE HORNE DATE: 03/11/17 REPORT STATUS : Draft TRANSCRIBED BY: KAJAL DATE: 03/11/17 Bennie Kauffman M.D. Daniel Fisher Jr., M.D.
[~2017-03-10 18:19] MED LIST changes: +LEVAQUIN5T PO
[2017-03-11 00:10] LABS: BASOPHILS 0.2 %; BASOPHILS ABSOLUTE 0.01 10/3/uL (0.0-0.16); EOSINOPHILS 2.4 %; EOSINOPHILS ABSOLUTE 0.14 10/3/uL (0.0-0.53); ER CBC TAT 0 Hrs 05 Mins; HEMOGLOBIN 15.6 g/dL (13.6-17.8); IMMATURE GRANULOCYTES 0.3 %; IMMATURE GRANULOCYTES ABSOLUTE 0.02 10/3/uL (0.0-0.11); LYMPHOCYTES 31.5 %; LYMPHOCYTES ABSOLUTE 1.87 10/3/uL (0.67-4.30); MEAN CORPUS HGB CONC 34.1 g/dL (32.0-36.0); MEAN CORPUSCULAR HEMOGLOB 28.4 pg (26.0-34.0); MEAN CORPUSCULAR VOLUME 83.2 fL (80-100); MONOCYTES 7.9 %; MONOCYTES ABSOLUTE 0.47 10/3/uL (0.21-1.20); NEUTROPHILS 57.7 %; NEUTROPHILS ABSOLUTE 3.42 10/3/uL (2.02-8.40); PLATELET COUNT 199 10/3/uL (150-400); RBC DISTRIBUTION WIDTH 14.5 % (12.0-16.0); RED CELL COUNT 5.49 10/6/uL (4.7-6.1); WHITE BLOOD CELLS 5.9 10/3/uL (4.5-10.5)
[2017-03-11 00:14] LABS: HEMATOCRIT 45.7 % (40.0-51.0); MANUAL DIFF NO %
[2017-03-11 00:20] LABS: INTERNATIONAL NORMAL RATI 1.4 UNITS (-); PROTIME (NOT ORD) 16.6 SEC (12.0-14.5)
[2017-03-11 00:21] LABS: PARTIAL THROMBO TIME 34.5 SEC (22.5-37.2)
[2017-03-11 00:26] LABS: CALCIUM, SERUM 9.3 MG/DL (8.5-10.4); CHLORIDE, SERUM 106 MMOL/L (96-112); CO2 (CARBON DIOXIDE) 32 MMOL/L (24-34); CREATININE 1.17 MG/DL (0.70-1.30); GFR AFRICAN AMERICAN 79 ML/MIN (>=60); GFR NON AFRICAN AMERICAN 68 ML/MIN (>=60); SODIUM, SERUM 142 MMOL/L (135-148)
[2017-03-11 00:27] LABS: BUN (BLOOD UREA NITROGEN) 26 MG/DL (6-23); GLUCOSE, SERUM 165 MG/DL (60-99)
[2017-03-11 06:41] LABS: BASOPHILS 0.3 %; BASOPHILS ABSOLUTE 0.02 10/3/uL (0.0-0.16); EOSINOPHILS 2.7 %; EOSINOPHILS ABSOLUTE 0.17 10/3/uL (0.0-0.53); HEMATOCRIT 44.4 % (40.0-51.0); IMMATURE GRANULOCYTES 0.3 %; IMMATURE GRANULOCYTES ABSOLUTE 0.02 10/3/uL (0.0-0.11); LYMPHOCYTES 32.3 %; LYMPHOCYTES ABSOLUTE 2.03 10/3/uL (0.67-4.30); MEAN CORPUS HGB CONC 33.8 g/dL (32.0-36.0); MEAN CORPUSCULAR VOLUME 82.8 fL (80-100); MEAN PLATELET VOLUME 10.1 fL (9.2-13.0); MONOCYTES ABSOLUTE 0.63 10/3/uL (0.21-1.20); NEUTROPHILS 54.4 %; NEUTROPHILS ABSOLUTE 3.42 10/3/uL (2.02-8.40); PLATELET COUNT 196 10/3/uL (150-400); RBC DISTRIBUTION WIDTH 14.9 % (12.0-16.0); RED CELL COUNT 5.36 10/6/uL (4.7-6.1); WHITE BLOOD CELLS 6.3 10/3/uL (4.5-10.5)
[2017-03-11 06:42] LABS: MANUAL DIFF NO %
[2017-03-11 06:48] LABS: PARTIAL THROMBO TIME 33.7 SEC (22.5-37.2)
[2017-03-11 06:49] LABS: INTERNATIONAL NORMAL RATI 1.3 UNITS (-); PROTIME (NOT ORD) 16.2 SEC (12.0-14.5)
[2017-03-11 07:00] LABS: A/G RATIO 0.8 (0.7-1.9); ALBUMIN 3.4 G/DL (3.5-5.0); BUN (BLOOD UREA NITROGEN) 23 MG/DL (6-23); CALCIUM, SERUM 9.1 MG/DL (8.5-10.4); CHLORIDE, SERUM 107 MMOL/L (96-112); CO2 (CARBON DIOXIDE) 31 MMOL/L (24-34); CREATININE 1.18 MG/DL (0.70-1.30); GFR AFRICAN AMERICAN 78 ML/MIN (>=60); GFR NON AFRICAN AMERICAN 68 ML/MIN (>=60); GLOBULIN 4.2 G/DL (2.5-4.1); GLUCOSE, SERUM 136 MG/DL (60-99); PHOSPHORUS, SERUM 3.1 MG/DL (2.5-4.5); POTASSIUM, SERUM 3.8 MMOL/L (3.5-5.3); SGOT(AST) 9 U/L (5-40); SGPT(ALT) 20 U/L (5-65); SODIUM, SERUM 143 MMOL/L (135-148); TOTAL BILIRUBIN 1.1 MG/DL (0-1.2); TOTAL PROTEIN 7.6 G/DL (6.0-8.5); TROPONIN I <0.02 NG/ML (<0.05)
[2017-03-11 07:01] LABS: ALKALINE PHOSPHATASE 103 U/L (45-117)
[2017-03-11 07:13] LABS: PROCALCITONIN <0.05 ng/mL (<0.5)
[2017-03-12 04:44] LABS: BUN (BLOOD UREA NITROGEN) 21 MG/DL (6-23); CALCIUM, SERUM 9.5 MG/DL (8.5-10.4); CHLORIDE, SERUM 108 MMOL/L (96-112); CREATININE 1.09 MG/DL (0.70-1.30); GFR AFRICAN AMERICAN 86 ML/MIN (>=60); GFR NON AFRICAN AMERICAN 74 ML/MIN (>=60); POTASSIUM, SERUM 4.1 MMOL/L (3.5-5.3); SODIUM, SERUM 142 MMOL/L (135-148)
[2017-03-12 04:51] LABS: CO2 (CARBON DIOXIDE) 26 MMOL/L (24-34); GLUCOSE, SERUM 96 MG/DL (60-99)
[2017-03-12 14:06] LABS: BUN (BLOOD UREA NITROGEN) 25 MG/DL (6-23); CALCIUM, SERUM 9.6 MG/DL (8.5-10.4); CHLORIDE, SERUM 105 MMOL/L (96-112); CO2 (CARBON DIOXIDE) 30 MMOL/L (24-34); CREATININE 1.17 MG/DL (0.70-1.30); GFR AFRICAN AMERICAN 79 ML/MIN (>=60); GFR NON AFRICAN AMERICAN 68 ML/MIN (>=60); GLUCOSE, SERUM 133 MG/DL (60-99); POTASSIUM, SERUM 4.5 MMOL/L (3.5-5.3); SODIUM, SERUM 143 MMOL/L (135-148); TROPONIN I <0.02 NG/ML (<0.05)
[2017-03-13 06:33] LABS: TROPONIN I <0.02 NG/ML (<0.05); VANCOMYCIN TROUGH 8.3 MCG/ML (10.0-20.0)
[2017-03-14] MEDS ORDERED: NITROII20C TOP (16:09)
[2017-03-14] MEDS ORDERED: LOP50 PO (16:10)
[2017-03-14] MEDS ORDERED: CIP5 PO (16:10)
[2017-03-14] MEDS ORDERED: SEPTRA DS1 TAB PO (16:10)
[2017-06-24] MEDS ORDERED: PLAVIX PO (15:35)
[2017-06-24] MEDS ORDERED: NEUR300 PO (15:36)
[2017-06-24] MEDS ORDERED: PRIN20 PO (15:36)
[2017-06-24] MEDS ORDERED: GLUCOPHAGE1000 MG PO (15:36)
[2017-06-24] MEDS ORDERED: LEVEMIR SC (15:36)
[2017-06-24] MEDS ORDERED: LOP50 PO (15:37)
[2017-06-30] MEDS ORDERED: NORV10 PO (14:23)
[2017-06-30] MEDS ORDERED: DSS PO (14:23)
[2017-06-30] MEDS ORDERED: ASAB PO (14:23)
== END 2017-03-14 19:33 | disposition home or self-care (01) ==
LOC: ER 18:19 → 4SO 03-11 01:43
PROVIDERS: Hospitalist; Internal Medicine; Nurse Practitioner Acute Care
DX: L03.116 Cellulitis of left lower limb (principal); I10 Essential (primary) hypertension; E11.9 Type 2 diabetes mellitus without complications; F09 Unspecified mental disorder due to known physiological condition; I73.9 Peripheral vascular disease, unspecified; I69.354 Hemiplegia and hemiparesis following cerebral infarction affecting left non-dominant side; I25.10 Atherosclerotic heart disease of native coronary artery without angina pectoris; Z95.1 Presence of aortocoronary bypass graft; Z79.899 Other long term (current) drug therapy; Z79.82 Long term (current) use of aspirin; Z79.84 Long term (current) use of oral hypoglycemic drugs; Z88.0 Allergy status to penicillin; Z86.14 Personal history of Methicillin resistant Staphylococcus aureus infection; Z89.419 Acquired absence of unspecified great toe; Z79.01 Long term (current) use of anticoagulants
CPT/HCPCS: 73630-LT; 78452; 80048; 80053; 80202; 82962; 83605; 83735; 83880; 84100; 84145; 84443; 84484; 85025; 85610; 85652; 85730; 87040; 90714; 93005; 93017; 96372; 96374; 96375; 96376; 99284; A9270-GY; A9502; G0378; J0153; J0360; J2405; J2543; J3370